=== PATIENT | female | born 1940 | race Caucasian/White ===

== ENCOUNTER 2020-09-23 14:28 | Observation (INO) | payer MEDICARE, SELFPAY ==
[2020-09-23] VITALS (15 sets, daily range): BP systolic 123–184; BP diastolic 57–70; PULSE 57–68; RESP 13–23; TEMP 36.1–36.4; O2SAT 92–100; BMI 31.5
--- NOTE | ~2020-09-23 | NM_ITS ---
EXAMINATION: NM pulmonary perfusion EXAM DATE: 09/23/2020 18:57 INDICATION: Shortness of breath. TECHNIQUE: A perfusion lung scan was performed. The patient was injected with 2.5 mCi technetium 99m MAA and imaged. Modified PIOPED 2 criteria used for interpretation of perfusion without ventilation study (recent chest x-ray instead for comparison). Correlation is made to chest x-ray earlier same da y. FINDINGS: Minimally heterogeneous perfusion, without segmental filling defects. Low probability pulmo nary embolus. IMPRESSION: Low probability pulmonary embolism. Reviewed, dictated and finalized at location A.
--- NOTE | ~2020-09-23 | XR_ITS ---
XR chest 2V DATE: 09/23/2020 15:30 INDICATION: Cough, shortness of breath. Probable lips. Dizziness. TECHNIQUE: AP and lateral views COMPARISON: None FINDINGS: Dual lumen right internal jugular central venous catheter tip overlies the right atrium. There is cardiomegaly. Aortic calcification. There is mild elevation of left leaf of the diaphragm. There is mild infiltrate and/atelectasis in th e lower lung zones. Minimal pleural effusions are suggested. No pulmonary vascular congestion. No pne umothorax is evident. There is diffuse osteopenia. IMPRESSION: Cardiomegaly Aortic atherosclerosis Mild infiltrate or atelectasis at the lung bases Mild elevation of left leaf of diaphragm Small pleural effusions Dual lumen right internal jugular central venous catheter tip overlies right atrium Reviewed, dictated and finalized at location B. IMPRESSION: Cardiomegaly Aortic atherosclerosis Mild infiltrate or atelectasis at the lung bases Mild elevation of left leaf of diaphragm Small pleural effusions Dual lumen right internal jugular central venous catheter tip overlies right at rium
--- NOTE | 2020-09-23 14:53 | ECG_ITS ---
Measurements Intervals [place] Rate: 61 P: 30 NJ: 184 QRS: -4 QRSD: 103 T: 19 QT: 437 QTc: 441 Interpretive Statements SINUS RHYTHM BORDERLINE T WAVE ABNORMALITY- ANTERIOR LEADS BASELINE ARTIFACT- I, II, III, AVR, AVL, AVF, V3 BORDERLINE ECG Electronically Signed On 09-23-2020 15:06:43 CDT by Isidro Galindo D.O.
[2020-09-23 15:13] LABS: Alveolar/Arterial O2 Gradient 18.7 mmHg; Fractional Inspired Oxygen 28 %; HCO3 ABG 34.2 mEq/l (22.0-26.0); Oxygen Content ABG 13.8 %vol (16.0-22.0); Oxygen Saturation ABG 97.3 % (95.0-100.0); Oxyhemoglobin 96.7 % THb (90.0-100.0); PO2 ABG 104.4 mmHg (80.0-100.0); PO2 FiO2 Ratio Arterial Blood 3.73 %
[2020-09-23 15:15] LABS: Device NASAL CANNULA; PCO2 ABG 64.9 mmHg (35.0-45.0); Site Drawn LEFT BRACHIAL
[2020-09-23 15:27] LABS: Basophils Percent Auto 0.7 % (0.2-1.2); Eosinophils Absolute Auto 0.2 K/mm3 (0-0.3); Eosinophils Percent Auto 3.6 % (0-4.4); Hemoglobin 9.6 g/dL (12.0-15.0); Immature Granulocyte Absolute 0.02 K/mm3 (0.00-0.031); Immature Granulocyte Percent A 0.5 % (0-0.5); Lymphocytes Percent Auto 21.5 % (18.3-44.2); Mean Corpuscular HGB Conc 29.1 g/dl (32-36); Mean Corpuscular Hemoglobin 30.4 pg (26-34); Mean Corpuscular Volume 104.4 fl (80-100); Mean Platelet Volume 9.8 fl (7.4-10.4); Monocytes Absolute Auto 0.3 K/mm3 (0.1-0.6); Monocytes Percent Auto 7.7 % (2.6-8.5); Neutrophils Absolute Auto 2.8 K/mm3 (1.3-6.7); Platelet Count Result 158 k/mm3 (150-375); Red Blood Count 3.16 M/mm3 (4.2-5.4); Red Cell Distribution Width 16.5 % (11.5-14.5); White Blood Count 4.2 K/mm3 (4.5-10.0)
--- NOTE | 2020-09-23 15:38 | ED.GENADULT ---
HPI - General Adult General Chief complaint: Shortness of Breath/Dyspnea Stated complaint: lowo2 saturation Time Seen by Provider: 09/23/20 14:48 Source: patient, EMS and RN notes reviewed Mode of arrival: EMS Limitations: no limitations History of Present Illness HPI narrative: Patient is 80 years old white female referred to our emergency room from her family physician office because of hypoxia. Patient is 80 years old white female lives with her daughter was hospitalized at [facility] for 3 weeks because of renal failure and congestive heart failure and was intubated, then got discharged to a rehabilitation center 2 weeks later got discharged home 2 weeks later patient went to her doctor today for regular checkup and noticed that her oxygen level is in the 60s. Last dialysis was yesterday. Patient denies any new symptoms compared to 1 week ago. Patient family physician, instructor apparel manufacture and drug abuse resistance education officer at [facility]. Patient denies any fever, chills, nausea, vomiting, chest pain. The total is telling me that the patient was drained too much yesterday during dialysis followed by lightheadedness and dizziness. Patient is chronically on oxygen by nasal cannula 2 L 22/01. Patient is DNR. Discussed with the patient in the presence of her daughter at the bedside at the time Related Data Home Medications Medication Instructions Recorded Confirmed Artificial Tears 09/23/20 Benadryl 09/23/20 Fish Oil 09/23/20 acetaminophen 09/23/20 albuterol sulfate 09/23/20 amiodarone 09/23/20 aspirin 09/23/20 budesonide-formoterol [Symbicort] INHALATION 09/23/20 calcitriol 09/23/20 09/23/20 cholecalciferol (vitamin D3) 09/23/20 clonidine 09/23/20 donepezil 09/23/20 ferrous sulfate 09/23/20 gabapentin 09/23/20 lorazepam 09/23/20 melatonin 09/23/20 metoprolol succinate 09/23/20 pravastatin 09/23/20 sertraline 09/23/20 sevelamer carbonate 09/23/20 tramadol 09/23/20 Allergies Allergy/AdvReac Type Severity Reaction Status Date / Time No Known Allergies Allergy Verified 09/23/20 14:48 Review of Systems Review of Systems: Narrative: CONSTITUTIONAL: Denies fever, chills, or sweats. EYES: Denies visual changes, redness, or discharge. ENT: Denies rhinorrhea, congestion, sore throat, or otalgia. CARDIOVASCULAR: Denies chest pain, palpitations, or edema. RESPIRATORY: Denies cough or dyspnea. GASTROINTESTINAL: Denies abdominal pain, nausea, vomiting, or diarrhea. GENITOURINARY: Denies dysuria or hematuria. SKIN: Denies rash or itching. MUSCULOSKELETAL: Denies back pain, joint pain, or myalgia. NEUROLOGIC: Denies headache, numbness, or weakness. PSYCHIATRIC: Denies anxiety or depression. [facility] Social History Social History Gender identity (if verbalized by the patient): Female Exam Narrative: Exam Narrative: General appearance: Well-developed, well-nourished, ill looking, daughter at the bedside Skin: Normal color Head: Normocephalic, nontraumatic Eyes: Clear conjunctiva ENT: Oropharynx normal, ears normal, nose normal Neck: Supple, nontender Chest and respiratory: Slight diminution of air entry bilaterally, Heart: Regular rate/rhythm Abdomen: Soft, nontender, no organomegaly, quiet bowel sounds Vascular: Normal peripheral pulses, normal capillary refill. Musculoskeletal: Normal range of motion, nontender back Neurologic: Alert and oriented ?3, PLAYBACK OPERATOR is normal as tested, no gross motor deficit Course Course Emergency Course: Stable Reevaluation(s) Reevaluation #1: Patient feeling great, and would like to go home. My plan was to discharge patient home to [facility]
[2020-09-23 15:41] LABS: Lactic Acid Reflex 0.7 mmol/L (0.7-2.1)
[2020-09-23 15:42] LABS: INR 0.9
[2020-09-23 15:45] LABS: D Dimer 2.85 ug/mL (<0.48)
[2020-09-23 15:46] LABS: Alanine Aminotransferase 13 U/L (4-35); Albumin Level 3.5 g/dL (3.5-5.1); Alkaline Phosphatase 111 U/L (38-126); Anion Gap 0 mmol/L (8-16); Aspartate Amino Transferase 40 U/L (14-36); Bilirubin,Total 0.5 mg/dL (0.2-1.3); Blood Urea Nitrogen 12 mg/dL (7-17); Calcium 8.4 mg/dL (8.4-10.2); Carbon Dioxide 39 mmol/L (22-30); Chloride 97 mmol/L (98-107); Estimated Glomerular Filt Rate 11; Glucose 116 mg/dL (65-105); Magnesium 2.1 mg/dL (1.6-2.3); Sodium 136 mmol/L (137-145)
[2020-09-23 15:52] LABS: NT Pro B Type Natriuretic Pept 11400 PG/ML (5-100); Troponin I 0.015 ng/mL (0.000-0.034)
--- NOTE | 2020-09-23 16:10 | PC.NURSE ---
Unable to collect 2nd set blood cultures but IV established. Scarlet transmitter engineer in charge to call phlebotomy.
[2020-09-23 16:16] LABS: Add Urine Microscopic? YES; Appearance Urine Cloudy (Clear); Bacteria Urine Trace /hpf; Bilirubin Urine Negative (Negative); Blood Urine Negative (Negative); Color Urine Yellow (Yellow); Glucose Urine UA Negative (Negative); Ketones Urine Negative (Negative); Leukocyte Esterase Ur Negative LEU/UL (Negative); Mucus Urine Rare /lpf; Nitrate Urine Negative (Negative); Protein Urine 3+ mg/dL (Negative); Specific Grav Ur 1.016 (1.001-1.035); Squamous Epithelial Cell Urine Rare /hpf (Few); Urobilinogen Urine Negative mg/dL (<2.0)
--- NOTE | 2020-09-23 17:36 | PC.NURSE ---
Boiler Engineer here for blood cultures.
--- NOTE | 2020-09-23 17:59 | PM.CNNEP ---
Assessment and Plan Assessment and plan (1) End stage renal disease: Code(s): N18.6 - End stage renal disease Status: Chronic (2) Chronic respiratory failure with hypoxia: Code(s): J96.11 - Chronic respiratory failure with hypoxia Status: Chronic (3) Hypertension: Code(s): I10 - Essential (primary) hypertension Status: Chronic (4) DM2 (diabetes mellitus, type 2): Code(s): E11.9 - Type 2 diabetes mellitus without complications Status: Chronic Additional Plan Miladys has end-stage renal disease and is due for dialysis tomorrow. I will plan on performing dialysis tomorrow to keep her on her Sunday dialysis schedule and at the same time monitor her electrolytes, volume status, and clearance. As she is fairly new to dialysis, and it would seem that these parameters are fairly stable as evidence by her labs done today. Her end-stage renal disease care and presumably her kidney disease is due to hypertension, diabetes, and age-related change. I will make further adjustments in her medications and dialysis prescription as indicated by her CKD parameters. Epogen will be instituted with dialysis to maintain stability in her hemoglobin hematocrit and we will follow up on her intact PTH, 25 hydroxy vitamin-D and her overall hemodynamics with adjustment in her blood pressure medications as needed also. I will continue follow patient with you while she remains hospitalized make further recommendations during hospital course Thank you for allowing me to participate in the care this patient. History of Present Illness Reason for Consult Consult date: 09/23/20 Reason for consult: end stage renal disease Chief Complaint Chief complaint: Dialysis patient History of Present Illness Narrative: The patient is a 80-year-old female with a past medical history as outlined below who presented to [facility] Emergency room due to reports of hypoxia at her primary care physician's office. The patient was just recently hospitalized at [facility] for a variety of issues but apparently was initiated on renal replacement therapy / dialysis during that hospital stay. She went to see her primary care physician earlier today for routine follow-up following this hospital stay and management of her chronic medical issues and problems. Reportedly, the patient was quite hypoxic on evaluation at her primary care physician's office and do this finding, she was transferred to the emergency room for further evaluation and therapy Workup and evaluation emergency room demonstrated the patient to be hemodynamically stable and with no evidence of hypoxia by their assessment. She does have chronic respiratory failure secondary to COPD and is on home oxygen therapy at this time but her O2 saturations were well within normal limits with these chronic medical issues and problems. Routine blood test demonstrated labs consistent with her known history of end-stage renal disease but did not demonstrate any significant abnormalities besides this. Her chest x-ray did not show any infiltrates, pneumonia, or pulmonary vascular congestion either. The tentative plan was to actually discharge the patient home but apparently there was some social issues in terms of the concern that her daughter would not be able to take care of her given her issues and problems with her dialysis and hence the patient was admitted overnight for observation and for dialysis tomorrow morning. Renal consultation was requested due to her end-stage renal disease. The patient apparently follows with Dr. Francois Ferguson at [facility] for her end-stage renal disease needs. As she is fairly new to dialysis, even the outpatient dialysis unit that she goes to does not know her very well but they have not had any significant issues or problems with her dialysis treatments although they are well aware of the crispin
[2020-09-23] MEDS: ENOXAPARIN 80 MG/0.8 ML SYRINGE 70 MG SUB-Q (18:18)
--- NOTE | 2020-09-23 18:30 | PC.NURSE ---
To [facility] for scan.
--- NOTE | 2020-09-23 19:16 | PC.NURSE ---
Report to KAREEM Douglas, to continue care.
--- NOTE | 2020-09-23 20:04 | ADMGEN ---
This patient, Miladys Snider, was admitted to Medical Room 349-01. Patient/family oriented to hospital policies and general routines including ID bracelet, bed and alarms, visiting hours, pain management, procedures, bathroom and other care routines, personal items, smoking policy, room service/diet, and visiting hours. Information on how to activate the Rapid Response Team has been discussed. Patient/Family are encouraged to report perceived risks to care and to ask questions if they do not understand what they are told or what they should do.
--- NOTE | 2020-09-23 23:30 | PM.IMHP ---
H&P: HPI History of Present Illness Date/Time: 09/23/20 23:30 this is 80-year-old female patient who has end-stage renal disease and is on dialysis Sunday. The patient had been at [facility] and reportedly was intubated. The patient was discharged to [place] for senior living facility. It looks like the patient was discharged from that facility on the this month. She had been staying at home with her daughter. Is reported that the patient went for her primary care doctor's visit today and was found to be hypoxic. The patient is typically chronically hypoxic and is on oxygen at 2 L per nasal cannula. The patient has history of COPD as well as congestive heart failure. However the patient was no longer hypoxic here in the emergency room. However the ER provider stated he did not feel comfortable sending the patient home as the daughter was stating that she is unable to care for the patient any longer. At this point resident care aide has not been involved. I requested that the patient return outpatient to her primary care doctor's office for snf placement. However the ED provider and was insistent that the daughter could not take the patient home. The daughter is requesting placement for the patient. The patient has problems with her memory and looks like she possibly has dementia. She has a very poor historian. She denied any fever or chills. No nausea no vomiting no diarrhea. The patient is listed as a DNR. Patient stated she is new to dialysis. She was not sure when she went to dialysis last. ER note states that the last dialysis was on Sunday of this week. Which was yesterday. V/Q scan shows low probability pulmonary embolism. Chest x-ray was read as cardiomegaly. Aortic atherosclerosis. Mild infiltrate or atelectasis at the lung bases. Mild elevation left leaf are diaphragm. Small pleural effusions. Dual lumen right internal jugular central venous catheter tip overlies right atrium. H&H is 9.6 and 33.0. D-dimer was noted to be 2.85. ABGs pH 7.340 CO2 64.9. Creatinine 3.8. BNP 63605. Patient is being admitted for elevated D-dimer and hypoxic. The patient is being admitted for observation on the date of service of 09/23/2020. Chief Complaint: Hypoxia Review of Systems Review of Systems: Narrative: The patient is a poor historian. All systems reviewed & are unremarkable except as noted in HPI and below Constitutional: Constitutional: Reports as per HPI and Reports no additional constitutional complaints Eyes: Eyes: Reports as per HPI and Reports no additional eye complaints ENT: Reports system reviewed and no additional complaints, except as documented and Reports Normal hearing present Cardiovascular: Cardiovascular: Reports no additional cardiovascular complaints Respiratory: Respiratory: Reports no additional respiratory complaints and Reports no additional respiratory complaints Gastrointestinal: Gastrointestinal: Reports as per HPI and Reports no additional gastrointestinal complaints Musculoskeletal: Musculoskeletal: Reports no additional musculoskeletal complaints Integumentary/Breasts: Skin/Breast: Reports system reviewed and no additional complaints, except as docu and Reports as per HPI Neurologic: Reports system reviewed and no additional complaints, except as documented, Reports as per HPI and Reports Normal hearing present Psychiatric: Psychiatric: Reports no additional psychiatric complaints and Reports as per HPI Endocrine: Endocrine: Reports no additional endocrine complaints Hematologic/Lymphatic: Hematologic/Lymphatic: Reports no additional hematologic/lymphatic complaints Allergic/Immunologic: Allergic/Immunologic: Reports no additional allergic/immunologic complaints [facility] Past Medical History Medical History (Updated 09/23/20 @ 23:49 by Merly March NP) Anxiety and depression CHF (congestive heart failure), NYHA class I Chronic respi
[2020-09-24] VITALS (21 sets, daily range): BP systolic 64–176; BP diastolic 31–88; PULSE 57–73; RESP 16–18; TEMP 35.2–37; O2SAT 96–100
[2020-09-24] MEDS: LORazepam (*CRX) 1 MG TABLET BY MOUTH ×2 (00:13→10:06)
[2020-09-24 00:15] LABS: Alveolar/Arterial O2 Gradient 36.9 mmHg; Base Excess ABG 7.3 mEq/l (+/-2.0); Fractional Inspired Oxygen 24 %; HCO3 ABG 34.4 mEq/l (22.0-26.0); Oxygen Content ABG 12.2 %vol (16.0-22.0); Oxygen Saturation ABG 87.6 % (95.0-100.0); Oxyhemoglobin 89.3 % THb (90.0-100.0); PO2 ABG 57.6 mmHg (80.0-100.0); Total Hemoglobin 9.7 g/dL (12.0-18.0); pH ABG 7.346 (7.350-7.450)
[2020-09-24 00:16] LABS: Device NASAL CANNULA; PCO2 ABG 64.4 mmHg (35.0-45.0); Site Drawn RIGHT BRACHIAL
[2020-09-24 04:38] LABS: Glucose Point of Care 99 (65-105)
[2020-09-24 05:30] LABS: Basophils Percent Auto 1.1 % (0.2-1.2); Eosinophils Absolute Auto 0.2 K/mm3 (0-0.3); Eosinophils Percent Auto 5.9 % (0-4.4); Hematocrit 30.2 % (37.0-47.0); Hemoglobin 8.9 g/dL (12.0-15.0); Immature Granulocyte Absolute 0.02 K/mm3 (0.00-0.031); Immature Granulocyte Percent A 0.5 % (0-0.5); Lymphocytes Absolute Auto 1.02 K/mm3 (0.9-3.2); Lymphocytes Percent Auto 27.2 % (18.3-44.2); Mean Corpuscular HGB Conc 29.5 g/dl (32-36); Mean Corpuscular Hemoglobin 30.6 pg (26-34); Mean Corpuscular Volume 103.8 fl (80-100); Mean Platelet Volume 9.2 fl (7.4-10.4); Monocytes Absolute Auto 0.5 K/mm3 (0.1-0.6); Neutrophils Percent Auto 53.3 % (45.5-73.1); Platelet Count Result 139 k/mm3 (150-375); Red Blood Count 2.91 M/mm3 (4.2-5.4); Red Cell Distribution Width 16.1 % (11.5-14.5); White Blood Count 3.8 K/mm3 (4.5-10.0)
[2020-09-24 05:39] LABS: Hemoglobin A1C 4.5 % (<5.7)
[2020-09-24 05:52] LABS: Alanine Aminotransferase 12 U/L (4-35); Albumin Level 3.1 g/dL (3.5-5.1); Alkaline Phosphatase 114 U/L (38-126); Anion Gap 3 mmol/L (8-16); Aspartate Amino Transferase 29 U/L (14-36); Bilirubin,Total 0.2 mg/dL (0.2-1.3); Blood Urea Nitrogen 14 mg/dL (7-17); Calcium 8.3 mg/dL (8.4-10.2); Carbon Dioxide 36 mmol/L (22-30); Chloride 98 mmol/L (98-107); Estimated Glomerular Filt Rate 9; Glucose 88 mg/dL (65-105); Magnesium 2.1 mg/dL (1.6-2.3); Potassium 4.1 mmol/L (3.4-5.0); Sodium 137 mmol/L (137-145)
[2020-09-24 06:18] LABS: Macrocytosis 1+ (NORMAL)
[2020-09-24 06:30] LABS: Hepatitis B Surface Antigen Negative (Negative)
[2020-09-24 06:37] LABS: HAV RESULT Negative (Negative); Hepatitis B Core IgM Result Negative (Negative)
[2020-09-24 06:47] LABS: Hepatitis B Surface Anti Res Negative; Hepatitis C Virus Antibody Negative (Negative)
[2020-09-24 07:53] LABS: Glucose Point of Care 87 (65-105)
[2020-09-24] MEDS: SERTRALINE HCL 50 MG TABLET 100 MG PO (08:41)
[2020-09-24] MEDS: ATORVASTATIN 40 MG TABLET PO (08:41)
[2020-09-24] MEDS: ASPIRIN 81 MG ENTERIC TABLET PO (08:41)
[2020-09-24] MEDS: DONEPEZIL HCL 5 MG TABLET PO (08:41)
[2020-09-24] MEDS: LOSARTAN POTASSIUM 100 MG TABLET PO (08:41)
[2020-09-24] MEDS: FUROSEMIDE 40 MG TABLET PO (08:42)
[2020-09-24] MEDS: SODIUM CHLORIDE 0.9% IV 1,000 ML 100 ML IV CONT (09:15)
[2020-09-24] MEDS: SODIUM CHLORIDE 0.9% IV 1,000 ML 999 ML IV CONT (11:00)
[2020-09-24] MEDS: ALBUMIN HUMAN 25% 12.5 GM/50ML 50 ML IVPB (11:16)
[2020-09-24] MEDS: EPOETIN ALFA-EPBX 10,000 UNITS/ML VIAL 10000 UNITS IV PUSH (11:52)
--- NOTE | 2020-09-24 12:13 | PM.PNNEP ---
Progress Note: A&P Assessment and Plan (1) End stage renal disease: Code(s): N18.6 - End stage renal disease Status: Chronic Assessment and Plan: HD today and continue M/W/F schedule while hospitalized follow electrolytes, volume status, and clearance FULL CONSULT to follow Subjective Date/time seen: 09/24/20 12:13 Tolerating dialysis at the time of my visit (seen on HD at 12:00PM); seems anxious for discharge today; no other acute issues or complaints voiced. Objective Data Vital Signs Vital Signs: Vital Signs Temp Pulse Resp BP Pulse Ox 09/24/20 12:00 64 119/57 L 09/24/20 11:45 63 127/56 L 09/24/20 11:30 64 126/59 L 09/24/20 11:15 63 103/48 L 09/24/20 11:10 63 98/47 L 09/24/20 11:05 64 96/46 L 09/24/20 11:00 66 64/31 L 09/24/20 10:45 62 124/59 L 09/24/20 10:35 58 L 171/72 H 09/24/20 10:20 36.6 C 59 L 18 176/71 H 09/24/20 09:01 73 18 98 09/24/20 08:00 99 09/24/20 04:44 36.4 C 60 17 148/56 H 100 09/23/20 20:22 36.4 C 61 18 167/58 H 93 09/23/20 20:03 92 09/23/20 18:16 57 L 17 184/67 H 100 09/23/20 18:01 57 L 22 H 172/67 H 99 09/23/20 17:46 58 L 13 160/67 H 09/23/20 17:31 58 L 17 148/57 H 09/23/20 17:16 58 L 15 170/67 H 100 09/23/20 17:01 59 L 23 H 150/68 H 98 09/23/20 16:46 66 21 H 151/62 H 99 09/23/20 16:31 66 18 123/61 100 09/23/20 16:30 67 15 09/23/20 16:16 57 L 20 158/70 H 100 09/23/20 15:31 68 09/23/20 15:11 99 09/23/20 14:40 36.1 C L 60 15 158/68 H 100 Intake/Output Intake/Output: Intake & Output 09/21/20 09/22/20 09/23/20 09/24/20 23:59 23:59 23:59 23:59 Intake Total 100 250 Output Total 100 Balance 0 250 Meds/Results Medications: Active Medications Generic Name Dose Route Start Last Admin Trade Name Freq PRN Reason Stop Dose Admin Acetaminophen 650 mg 09/24/20 08:52 Acetaminophen 325 Mg Tablet PO Q6H PRN Mild Pain (1-3) or Fever Albuterol 2.5 mg 09/23/20 23:40 Albuterol Sulfate Neb 2.5 Mg/0.5 Ml Inh INHALATION Q4HRT PRN Shortness Of Breath Aspirin 81 mg 09/24/20 09:00 09/24/20 08:41 Aspirin 81 Mg Enteric Tablet PO 10/24/20 09:01 81 mg DAILY RAHUL Administration Atorvastatin Calcium 40 mg 09/24/20 09:00 09/24/20 08:41 Atorvastatin 40 Mg Tablet PO 40 mg DAILY RAHUL Administration Calcium Carbonate 200 mg 09/24/20 11:31 Calcium Carbonate (Tums) 500 Mg (200 Mg Elemental) PO Q6H PRN Indigestion Dextrose 12.5 gm 09/23/20 23:48 Dextrose 50% 25 Gm/50 Ml Syringe IV PUSH PRN PRN Hypoglycemia Protocol Donepezil HCl 5 mg 09/24/20 09:00 09/24/20 08:41 Donepezil Hcl 5 Mg Tablet PO 5 mg DAILY RAHUL Administration Epoetin Eusebio-epbx 10,000 units 09/24/20 19:18 09/24/20 11:52 Epoetin Eusebio-Epbx 10,000 Units/Ml Vial IV PUSH 09/24/20 19:19 10,000 units ONCE ONE Administration Furosemide 40 mg 09/24/20 09:00 09/24/20 08:42 Furosemide 40 Mg Tablet PO 40 mg DAILY RAHUL Administration Glucagon 1 mg 09/23/20 23:48 Glucagon For Inj 1 Mg Vial IM PRN PRN Hypoglycemia Protocol Glucose 15 gm 09/23/20 23:48 Glucose Oral Gel 15 Gm Of Glucse In 37.5 Gm Tube PO PRN PRN Hypoglycemia Protocol Dextrose 1,000 mls @ 100 mls/hr 09/23/20 23:48 Dextrose 5% 1,000 Ml IVPB PRN PRN Hypoglycemia Protocol Albumin Human 50 mls @ 999 mls/hr 09/24/20 07:18 09/24/20 11:16 Albutein IVPB 10/24/20 07:19 100 mls/hr Q10M PRN Administration HYPOTENSION Insulin Aspart 2 - 5 units 09/24/20 08:00 09/24/20 08:17 Insulin Aspart (*Bkc) 100 Units/Ml SUB-Q Not Given TIDWM RAHUL Protocol Lorazepam 1 mg 09/23/20 23:50 09/24/20 00:13 Lorazepam (*Crx) 1 Mg Tablet BY MOUTH 1 mg Q8H PRN Administration Anxiety Lorazepam 1 mg
--- NOTE | 2020-09-24 14:40 | P.DS_ITS ---
DS: Admitting Diagnosis Admitting Diagnosis Admitting Diagnosis: SOB, CRF DS: Discharge Diagnosis Discharge Diagnosis (1) CHF (congestive heart failure), NYHA class I: Code(s): I50.9 - Heart failure, unspecified Status: Chronic Assessment and Plan: Per [facility], appears diastolic HF although no Echo records obtained to confirm. Does not appear to be in acute exacerbation although BNP elevated, possibly secondary to ESRD. SOB has improved, particularly after dialysis today. * Continue normal MWF dialysis after discharge * Continue home medications at discharge * F/u with established take out waitress (2) Chronic respiratory failure with hypoxia: Code(s): J96.11 - Chronic respiratory failure with hypoxia Status: Chronic Assessment and Plan: Patient chronically wears 2 L O2 per nasal cannula at home. Has history of COPD. She appears to be at her baseline oxygen. ABG shows hypercapnia likely secondary to CO2 retention from CRF/COPD * Follow up with PCP and citrus picker if establshed * Continue home COPD medications * PRN nebs during stay (3) Hypertension: Code(s): I10 - Essential (primary) hypertension Status: Chronic Assessment and Plan: BP reviewed and stable * Continue home antihypertensives (4) Anxiety and depression: Code(s): F41.9 - Anxiety disorder, unspecified; F32.9 - Major depressive disorder, single episode, unspecified Status: Chronic Assessment and Plan: No acute issues * Continue home medications (5) DM2 (diabetes mellitus, type 2): Code(s): E11.9 - Type 2 diabetes mellitus without complications Status: Chronic Assessment and Plan: A1c 4.5 * Accuchecks ACHS, hypoglycemia protocol, correctional insulin, diabetic/renal diet * Continue home medications at discharge (6) Dementia: Code(s): F03.90 - Unspecified dementia without behavioral disturbance Status: Chronic Assessment and Plan: Patient appears to be at baseline. * Continue home medications (7) Hyperlipidemia: Code(s): E78.5 - Hyperlipidemia, unspecified Status: Chronic Assessment and Plan: * Continue home statin (8) COPD (chronic obstructive pulmonary disease): Code(s): J44.9 - Chronic obstructive pulmonary disease, unspecified Status: Chronic Assessment and Plan: Does not appear to be in acute exacerbation. At baseline O2 saturations * Continue home meds * p.r.n. neb treatments. during stay (9) End stage renal disease on dialysis: Code(s): N18.6 - End stage renal disease; Z99.2 - Dependence on renal dialysis Status: Acute Assessment and Plan: MWF dialysis. Nephrology consulted and appreciate recommendations. Dialysis today which she tolerated well * Continue nephrology recommendations * MWF dialysis * F/u with established caramel cutter machine (10) Elevated d-dimer: Code(s): R79.89 - Other specified abnormal findings of blood chemistry Status: Acute Assessment and Plan: mildly elevated and likely secondary to ESRD. VQ scan unremarkable. Venous doppler ordered, however, low likelihood of DVT based on exam. * OP venous doppler LE b/l ordered; instructed to
--- NOTE | 2020-09-24 14:40 | PM.DS ---
DS: Admitting Diagnosis Admitting Diagnosis Admitting Diagnosis: SOB, CRF DS: Discharge Diagnosis Discharge Diagnosis (1) CHF (congestive heart failure), NYHA class I: Code(s): I50.9 - Heart failure, unspecified Status: Chronic Assessment and Plan: Per [facility], appears diastolic HF although no Echo records obtained to confirm. Does not appear to be in acute exacerbation although BNP elevated, possibly secondary to ESRD. SOB has improved, particularly after dialysis today. Continue normal MWF dialysis after discharge Continue home medications at discharge F/u with established product support specialist (2) Chronic respiratory failure with hypoxia: Code(s): J96.11 - Chronic respiratory failure with hypoxia Status: Chronic Assessment and Plan: Patient chronically wears 2 L O2 per nasal cannula at home. Has history of COPD. She appears to be at her baseline oxygen. ABG shows hypercapnia likely secondary to CO2 retention from CRF/COPD Follow up with PCP and supervisor water softener service if establshed Continue home COPD medications PRN nebs during stay (3) Hypertension: Code(s): I10 - Essential (primary) hypertension Status: Chronic Assessment and Plan: BP reviewed and stable Continue home antihypertensives (4) Anxiety and depression: Code(s): F41.9 - Anxiety disorder, unspecified; F32.9 - Major depressive disorder, single episode, unspecified Status: Chronic Assessment and Plan: No acute issues Continue home medications (5) DM2 (diabetes mellitus, type 2): Code(s): E11.9 - Type 2 diabetes mellitus without complications Status: Chronic Assessment and Plan: A1c 4.5 Accuchecks ACHS, hypoglycemia protocol, correctional insulin, diabetic/renal diet Continue home medications at discharge (6) Dementia: Code(s): F03.90 - Unspecified dementia without behavioral disturbance Status: Chronic Assessment and Plan: Patient appears to be at baseline. Continue home medications (7) Hyperlipidemia: Code(s): E78.5 - Hyperlipidemia, unspecified Status: Chronic Assessment and Plan: Continue home statin (8) COPD (chronic obstructive pulmonary disease): Code(s): J44.9 - Chronic obstructive pulmonary disease, unspecified Status: Chronic Assessment and Plan: Does not appear to be in acute exacerbation. At baseline O2 saturations Continue home meds p.r.n. neb treatments. during stay (9) End stage renal disease on dialysis: Code(s): N18.6 - End stage renal disease; Z99.2 - Dependence on renal dialysis Status: Acute Assessment and Plan: MWF dialysis. Nephrology consulted and appreciate recommendations. Dialysis today which she tolerated well Continue nephrology recommendations MWF dialysis F/u with established coding clerks supervisor (10) Elevated d-dimer: Code(s): R79.89 - Other specified abnormal findings of blood chemistry Status: Acute Assessment and Plan: mildly elevated and likely secondary to ESRD. VQ scan unremarkable. Venous doppler ordered, however, low likelihood of DVT based on exam. OP venous doppler LE b/l ordered; instructed to follow up with PCP for further management DS: Summary Hospital Course Reason for hospitalization: Dyspnea, reports of hypoxia Hospital Course: Date of arrival: 09/23/20 Date of discharge: 09/24/20 Patient is a 80 yo F with multiple comorbid conditions including diastolic heart failure, ESRD on MWF HD, COPD, Chronic respiratory failure (on 2L chronically), among other c
--- NOTE | 2020-09-30 13:26 | PC.NURSE ---
Blood cx are negative.
== END 2020-09-24 16:43 | disposition home health service (06) ==
LOC: ANHED 18:05 → ANH3MED 19:25
PROVIDERS: Internal Medicine Nephrology; Nurse Practitioner; Physician Assistant; Admitting Provider Family Medicine; Emergency Provider Emergency Medicine; PCP Family Medicine; Visit Provider Family Medicine
DX: J96.11 Chronic respiratory failure with hypoxia (principal); I13.2 Hypertensive heart and chronic kidney disease with heart failure and with stage 5 chronic kidney disease, or end stage renal disease; E11.22 Type 2 diabetes mellitus with diabetic chronic kidney disease; N18.6 End stage renal disease; I50.9 Heart failure, unspecified; J44.9 Chronic obstructive pulmonary disease, unspecified; F41.8 Other specified anxiety disorders; F03.90 Unspecified dementia, unspecified severity, without behavioral disturbance, psychotic disturbance, mood disturbance, and anxiety; R53.1 Weakness; Z99.2 Dependence on renal dialysis; Z99.81 Dependence on supplemental oxygen; Z66 Do not resuscitate; Z79.4 Long term (current) use of insulin; Z79.899 Other long term (current) drug therapy; Z87.891 Personal history of nicotine dependence; E78.5 Hyperlipidemia, unspecified; R79.89 Other specified abnormal findings of blood chemistry
CPT/HCPCS: 36415; 36600; 51701; 71046; 78580; 80053; 80074; 81001; 82805; 82948; 83036; 83605; 83735; 83880; 84484; 85025; 85380; 85610; 86706; 87040; 87804; 93005; 96372; 96374; 96375; 97161; 97165; 99285; A9270; A9540; G0257; G0378; J0131; J1650; J7030; P9047; Q5106